=== PATIENT | male | born 1950 | race Caucasian/White ===

== ENCOUNTER → 2024-01-02 15:03 | Outpatient (REF) | payer MEDICARE, OTHER, SELFPAY ==
[2024-01-02 16:18] LABS: ALT (SGPT) 42 U/L (0-50); AST (SGOT) 37 U/L (17-59); Albumin 4.5 g/dl (3.5-5.0); Alkaline Phosphatase 60 U/L (38-126); Blood Urea Nitrogen 28 mg/dl (9-20); Calcium 9.9 mg/dl (8.4-10.2); Carbon Dioxide 24 mmol/L (22-30); Chloride 103 mmol/L (98-107); Creatine Phosphokinase 182 U/L (55-170); Glucose 84 mg/dl (70-99); HDL Cholesterol 53 mg/dl; LDL Cholesterol, Calculated 76 mg/dl; Potassium 4.7 mmol/L (3.5-5.1); Sodium 134 mmol/L (135-145); Total Bilirubin 0.6 mg/dl (0.2-1.3); Total Cholesterol 144 mg/dl (50-199); Total Protein 7.2 g/dl (6.3-8.2); Triglyceride 76 mg/dl (10-149); Very Low Density Lipoprotein 15 mg/dl (0-30); eGFR > 60.00
[2024-01-02 16:35] LABS: Free T3 4.29 pg/ml (2.77-5.27); Free T4 0.86 ng/dl (0.78-2.19)
[2024-01-03 08:44] LABS: Glycohemoglobin (HgbA1c) 5.5 % (4.0-5.6)
[2024-01-04 13:44] LABS: Total T3 (Sendout) 107 ng/dL (80-200)
== END ==
LOC: REG 15:03
PROVIDERS: ATTENDING PHYSICIAN Family Medicine; FAMILY PHYSICIAN Family Medicine
DX: E89.0 Postprocedural hypothyroidism (principal); R74.8 Abnormal levels of other serum enzymes; E78.5 Hyperlipidemia, unspecified; R73.01 Impaired fasting glucose
CPT/HCPCS: 36415; 80053; 80061; 82550; 83036; 84439; 84443; 84480; 84481

== ENCOUNTER → 2024-02-29 08:13 | Outpatient (REF) | payer MEDICARE, OTHER, SELFPAY | LOC: MRI 08:13 | PROVIDERS: ATTENDING PHYSICIAN Physical Medicine & Rehabilitation; FAMILY PHYSICIAN Family Medicine | DX: M54.16 Radiculopathy, lumbar region (principal) | CPT/HCPCS: 72148 ==

== ENCOUNTER → 2024-03-11 13:41 | Outpatient (REF) | payer MEDICARE, OTHER, SELFPAY | LOC: RCS 13:41 | PROVIDERS: ATTENDING PHYSICIAN Internal Medicine Cardiovascular Disease; FAMILY PHYSICIAN Family Medicine | DX: R74.8 Abnormal levels of other serum enzymes (principal) | CPT/HCPCS: 93306; 93356 ==

== ENCOUNTER → 2024-03-11 | Outpatient (REF) | payer MEDICARE, OTHER, SELFPAY | LOC: DHSLP | PROVIDERS: ATTENDING PHYSICIAN Internal Medicine Cardiovascular Disease; FAMILY PHYSICIAN Family Medicine | DX: G47.33 Obstructive sleep apnea (adult) (pediatric) (principal) | CPT/HCPCS: 95800 ==

== ENCOUNTER → 2024-03-25 11:13 | Outpatient (REF) | payer MEDICARE, OTHER, SELFPAY | LOC: RAD 11:13 | PROVIDERS: ATTENDING PHYSICIAN Internal Medicine Cardiovascular Disease; FAMILY PHYSICIAN Family Medicine | DX: I77.819 Aortic ectasia, unspecified site (principal) | CPT/HCPCS: 71275; Q9967 ==

== ENCOUNTER → 2024-04-15 10:26 | Outpatient (REF) | payer MEDICARE, OTHER, SELFPAY ==
[2024-04-15 11:33] LABS: Hematocrit 50.1 % (39.0-52.0); Hemoglobin 17.3 g/dL (13.0-18.0); Mean Corp Hgb Conc. 34.5 g/dL (33.0-37.0); Mean Corpuscular Volume 89.8 fL (80.0-94.0); Mean Platelet Volume 9.7 fL (7.4-10.4); Platelet Count 159 10^3/uL (130-400); Red Blood Cell Count 5.58 10^6/uL (4.70-6.10); Red Cell Dist. Width 13.7 % (11.5-14.5); White Blood Cell Count 6.3 10^3/uL (4.8-10.8)
[2024-04-15 12:17] LABS: PSA, Total - Diagnostic 2.96 ng/ml (0.0-4.0)
== END ==
LOC: REG 10:26
PROVIDERS: ATTENDING PHYSICIAN Specialist; FAMILY PHYSICIAN Family Medicine
DX: E29.1 Testicular hypofunction (principal); N40.1 Benign prostatic hyperplasia with lower urinary tract symptoms
CPT/HCPCS: 36415; 84153; 84403; 85027

== ENCOUNTER → 2024-10-06 07:18 | Outpatient (REF) | payer MEDICARE, OTHER, SELFPAY | LOC: RAD 07:18 | PROVIDERS: ATTENDING PHYSICIAN Family Medicine | DX: I73.9 Peripheral vascular disease, unspecified (principal) | CPT/HCPCS: 93922; 93925 ==

== ENCOUNTER → 2025-04-02 07:59 | Outpatient (REF) | payer MEDICARE, OTHER, SELFPAY ==
[2025-04-02 09:01] LABS: Hematocrit 46.8 % (39.0-52.0); Hemoglobin 15.1 g/dL (13.0-18.0); Mean Corp Hgb Conc. 32.3 g/dL (33.0-37.0); Mean Corpuscular Hgb 25.2 pg (27.0-31.0); Platelet Count 173 10^3/uL (130-400); Red Cell Dist. Width 18.2 % (11.5-14.5); White Blood Cell Count 6.2 10^3/uL (4.8-10.8)
[2025-04-02 13:22] LABS: PSA, Total - Diagnostic 4.88 ng/ml (0.0-4.0)
== END ==
LOC: REG 07:59
PROVIDERS: ATTENDING PHYSICIAN Specialist; FAMILY PHYSICIAN Family Medicine
DX: E29.1 Testicular hypofunction (principal); N40.1 Benign prostatic hyperplasia with lower urinary tract symptoms
CPT/HCPCS: 36415; 84153; 84403; 85027

== ENCOUNTER → 2025-06-29 10:59 | Outpatient (REF) | payer MEDICARE, OTHER, SELFPAY ==
[2025-06-29 12:21] LABS: Glycohemoglobin (HgbA1c) 5.5 % (4.0-5.6)
[2025-06-29 12:25] LABS: Hematocrit 50.2 % (39.0-52.0); Hemoglobin 16.6 g/dL (13.0-18.0); Mean Corp Hgb Conc. 33.1 g/dL (33.0-37.0); Mean Corpuscular Volume 80.7 fL (80.0-94.0); Platelet Count 161 10^3/uL (130-400); Red Cell Dist. Width 19.9 % (11.5-14.5)
[2025-06-29 12:32] LABS: ALT (SGPT) 42 U/L (0-50); AST (SGOT) 37 U/L (17-59); Albumin 4.1 g/dl (3.5-5.0); Alkaline Phosphatase 65 U/L (38-126); Blood Urea Nitrogen 17 mg/dl (9-20); Calcium 9.2 mg/dl (8.4-10.2); Carbon Dioxide 28 mmol/L (22-30); Chloride 102 mmol/L (98-107); Glucose 91 mg/dl (70-99); HDL Cholesterol 45 mg/dl; LDL Cholesterol, Calculated 73 mg/dl; Potassium 4.5 mmol/L (3.5-5.1); Sodium 134 mmol/L (135-145); Total Protein 6.6 g/dl (6.3-8.2); Very Low Density Lipoprotein 11 mg/dl (0-30); eGFR > 60.00
[2025-06-29 23:01] LABS: PSA, Total - Diagnostic 4.76 ng/ml (0.0-4.0); TSH 3.82 uIU/ml (0.47-4.68)
== END ==
LOC: REG 10:59
PROVIDERS: ATTENDING PHYSICIAN Specialist; FAMILY PHYSICIAN Family Medicine; OTHER PHYSICIAN Family Medicine
DX: E29.1 Testicular hypofunction (principal); N40.1 Benign prostatic hyperplasia with lower urinary tract symptoms; I10 Essential (primary) hypertension; E03.9 Hypothyroidism, unspecified; F32.1 Major depressive disorder, single episode, moderate; E78.5 Hyperlipidemia, unspecified; I72.3 Aneurysm of iliac artery; I25.10 Atherosclerotic heart disease of native coronary artery without angina pectoris; E66.01 Morbid (severe) obesity due to excess calories; Z68.36 Body mass index [BMI] 36.0-36.9, adult; E66.812 Obesity, class 2; R73.09 Other abnormal glucose
CPT/HCPCS: 36415; 80053; 80061; 83036; 84153; 84403; 84443; 85027

== ENCOUNTER → 2025-07-30 10:56 | Outpatient (REF) | payer MEDICARE, OTHER, SELFPAY | LOC: RAD 10:56 | PROVIDERS: ATTENDING PHYSICIAN Podiatrist Foot & Ankle Surgery; FAMILY PHYSICIAN Family Medicine | DX: M25.571 Pain in right ankle and joints of right foot (principal) | CPT/HCPCS: 70030 ==

== ENCOUNTER → 2025-08-13 16:53 | Outpatient (REF) | payer MEDICARE, OTHER, SELFPAY | LOC: PAVMRI 16:53 | PROVIDERS: ATTENDING PHYSICIAN Podiatrist Foot & Ankle Surgery; FAMILY PHYSICIAN Family Medicine | DX: M76.71 Peroneal tendinitis, right leg (principal) | CPT/HCPCS: 73721 ==

== ENCOUNTER → 2025-09-25 08:26 | Outpatient (REF) | payer MEDICARE, OTHER, SELFPAY ==
[2025-09-25 09:12] LABS: Hematocrit 51.4 % (39.0-52.0); Hemoglobin 17.5 g/dL (13.0-18.0); Mean Corp Hgb Conc. 34.0 g/dL (33.0-37.0); Mean Corpuscular Volume 84.4 fL (80.0-94.0); Platelet Count 139 10^3/uL (130-400); Red Cell Dist. Width 17.7 % (11.5-14.5)
[2025-09-25 09:31] LABS: Glycohemoglobin (HgbA1c) 5.3 % (4.0-5.9)
[2025-09-25 09:40] LABS: ALT (SGPT) 46 U/L (0-50); AST (SGOT) 61 U/L (17-59); Albumin 4.5 g/dl (3.5-5.0); Alkaline Phosphatase 64 U/L (38-126); Blood Urea Nitrogen 20 mg/dl (9-20); Calcium 9.3 mg/dl (8.4-10.2); Carbon Dioxide 29 mmol/L (22-30); Chloride 103 mmol/L (98-107); Glucose 89 mg/dl (70-99); HDL Cholesterol 50 mg/dl; LDL Cholesterol, Calculated 78 mg/dl; Potassium 4.3 mmol/L (3.5-5.1); Sodium 137 mmol/L (135-145); Total Protein 7.5 g/dl (6.3-8.2); Very Low Density Lipoprotein 10 mg/dl (0-30); eGFR > 60.00
[2025-09-25 10:03] LABS: PSA, Total - Diagnostic 4.97 ng/ml (0.0-4.0); TSH 4.83 uIU/ml (0.47-4.68)
== END ==
LOC: REG 08:26
PROVIDERS: ATTENDING PHYSICIAN Specialist; FAMILY PHYSICIAN Family Medicine
DX: R97.20 Elevated prostate specific antigen [PSA] (principal); E29.1 Testicular hypofunction; I10 Essential (primary) hypertension; E03.9 Hypothyroidism, unspecified; F32.1 Major depressive disorder, single episode, moderate; E78.5 Hyperlipidemia, unspecified; I72.3 Aneurysm of iliac artery; E66.01 Morbid (severe) obesity due to excess calories; Z68.36 Body mass index [BMI] 36.0-36.9, adult; E66.812 Obesity, class 2
CPT/HCPCS: 36415; 80053; 80061; 83036; 84153; 84403; 84443; 85027